=== PATIENT | female | born 1950 | race Caucasian/White ===

== ENCOUNTER 2016-05-18 12:10 | Emergency (ER) | payer MEDICARE ==
[2016-05-18] MEDS ORDERED: LIDOCAINE 2% VISC 15 ML UDC ONE (17:06)
[2016-05-18] MEDS ORDERED: ALU/MAG/SIM 30 ML UDC ONE (17:06)
== END 2016-05-18 17:14 | disposition home or self-care (01) ==
LOC: ER 12:10
DX: R07.89 Other chest pain (principal); R10.13 Epigastric pain
CPT/HCPCS: 71010; 80053; 82550; 83735; 84484; 85025; 85610; 85730; 93005